=== PATIENT | female | born 1970 | race Caucasian/White ===

== ENCOUNTER 2016-11-16 10:01 | Emergency (ER) | payer OTHER ==
--- NOTE | ~2016-11-16 | CR63 ---
[facility] A Service of [facility] RADIOLOGY TEXT RESULTS PATIENT: TAL VILLELA LOCATION: SED : 74 UNIT #: [id number] AGE: [address]: Boni Jaurgeui MD SEX: F ORDER DR: [id number] [place] [id number] E MR#: [id number] Acc #: [id number] NAME: TAL VILLELA : 1970 SEX: F STUDY DATE/TIME: 11/16/2016 9:55 UNIT: SED ROOM: STUDY DESCRIPTION: CR Chest 2 View Attending Physician: Boni Jauregui M.D. Ordering Physician: Boni Jauregui M.D. Primary Care Physician: Yonny Caban M.D. MEDICAL IMAGING REPORT This report is preliminary unless electronic signature is present. EXAM Chest 2 views 11/16/2016 COMPARISON 09/11/2016. HISTORY Chest pain since last night. FINDINGS PA and lateral examination of the chest upright shows a good expansion of the parenchyma with a normal distribution of the pulmonary vascularity. There is no indication of congestion, effusion, infiltrate, tumor, or nodular density. The pleural reflections and diaphragmatic contours are normal. The cardiac silhouette and mediastinal anatomy is within normal limits. IMPRESSION Normal chest. Dictated by... Jermain Hanson M.D. THIS IS AN ELECTRONICALLY VERIFIED REPORT Jermain Hanson M.D. at 11/20/2016 7:06 PM TEV/pcl TD: 11/16/2016 16:04 JOB #: [id number] [facility] A Service [facility] RADIOLOGY TEXT RESULTS PATIENT: TAL VILLELA LOCATION: SED : 74 UNIT #: [id number] AGE: [address]: Boni Jauregui MD SEX: F ORDER DR: MEDICAL IMAGING REPORT
[~2016-11-16 10:01] MED LIST: ABILIFY10 MG PO; ABILIFY5 MG PO; ADVAIR 500-501 EACH; ADVAIR 500-501 EACH ENDO; ADVAIR 500-501 EACH IH; ALBUTEROL17 GM INH; BUTALB-ACETAMI1 EACH PO; BUTALB-APAP-CA1 EAC1 PO; CAF PO; CLARINEX5 MG PO; CLARITIN10 M1 PO; COGENTIN1 MG PO; DESYREL300 MG PO; DOVONEX60 GM TP; DOXEPIN HCL100 MG; DOXEPIN HCL100 MG PO; DOXYCYCLINE150 MG PO; DUONEB 2.5-0.5 M3 ML ENDO; DUONEB 2.5-0.5 M3 ML NEB; GUAIFENESIN600 MG PO; HYDROCODON-ACE1 EAC5 PO; IBUPROFEN800 MG PO; IPRATR-ALBUTEROL3 ML NEB; KLONOPIN0.5 MG PO; KLONOPIN1 MG PO; LASIX20 MG PO; LEVAQUIN; LEVAQUIN750 M1 PO; LEXAPRO PO; LEXAPRO5 MG PO; LISINOPRIL20 MG PO; LITHIUM; LITHIUM CARBON450 M1 PO; LORCET 10-6501 EACH PO; LORTAB 10-5001 EACH PO; MONTELUKAST SOD10 MG PO; MS CONTIN15 MG PO; MUCINEX100 MG/5 M; NEXIUM PO; NEXIUM20 MG PO; NIACIN500 M2 PO; NICOTINE TRANSD21 MG EXT; NORCO 10-325 TA1 TAB PO; NORCO1 TAB 10/3 PO; NORVASC10 MG PO; NOT RECONCILED; PHENERGAN25 MG PO; PHENERGAN25 MG/ML PO; PHENOL-SODIUM180 ML MT; PREDNISOLONE5 MG; PREDNISONE; PREDNISONE PO; PREDNISONE10 MG PO; PROAIR HFA8.5 GM IH; PROMETHAZINE-D240 ML PO; PROTONIX PO; REGLAN PO; REGLAN10 MG PO; REMERON45 MG PO; RISPERDAL3 MG PO; RISPERDAL4 M1; RISPERIDONE PO; SINGULAIR PO; SINGULAIR5 MG PO; SOMA PO; SOMA250 MG PO; SPIRIVA18 MCG INH; SYMBICORT INH; THORAZINE50 MG PO; TOPAMAX25 MG PO; TUSSIN15 MG/5 ML PO; TUSSIONEX PENN473 ML PO; VENTOLIN5 MG/ML ENDO; VENTOLIN5 MG/ML IH; VIBRAMYCIN100 M1 PO; VISTARIL50 MG PO; VITAMIN E400 UNI4 PO; VYTORIN 10-801 UDTAB PO; VYTORIN 10/80 T1 TAB PO; ZEGERID 20 MG C1 CAP PO; ZITHROMAX500 MG PO; [UNRECOGNIZED DRUG - OTHER] PO
[2017-04-21] MEDS ORDERED: ALB/IPRATROPIUM/1 E2 INH (10:20)
[2017-04-21] MEDS ORDERED: ALBUTEROL17 GM INH (10:21)
[2017-04-21] MEDS ORDERED: NEXIUM20 MG PO (10:22)
[2017-04-21] MEDS ORDERED: LITHIUM CARBON150 MG PO (12:54)
[2017-04-21] MEDS ORDERED: RISPERDAL2 MG PO (12:54)
[2017-04-21] MEDS ORDERED: NEXIUM PO (12:56)
[2017-04-21] MEDS ORDERED: SYMBICORT80 INH (15:41)
[2017-04-21] MEDS ORDERED: TRAZODONE HCL100 MG PO (18:50)
== END 2016-11-16 10:58 | disposition home or self-care (01) ==
LOC: SED 10:01
DX: S29.011A Strain of muscle and tendon of front wall of thorax, initial encounter (principal); F17.200 Nicotine dependence, unspecified, uncomplicated; Z88.2 Allergy status to sulfonamides; Z88.6 Allergy status to analgesic agent; X50.0XXA Overexertion from strenuous movement or load, initial encounter
CPT/HCPCS: 71020; 99283

== ENCOUNTER 2017-02-02 16:38 | Emergency (ER) | payer OTHER ==
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
[2017-04-21] MEDS ORDERED: ALB/IPRATROPIUM/1 E2 INH (10:20)
[2017-04-21] MEDS ORDERED: ALBUTEROL17 GM INH (10:21)
[2017-04-21] MEDS ORDERED: NEXIUM20 MG PO (10:22)
[2017-04-21] MEDS ORDERED: LITHIUM CARBON150 MG PO (12:54)
[2017-04-21] MEDS ORDERED: RISPERDAL2 MG PO (12:54)
[2017-04-21] MEDS ORDERED: NEXIUM PO (12:56)
[2017-04-21] MEDS ORDERED: SYMBICORT80 INH (15:41)
[2017-04-21] MEDS ORDERED: TRAZODONE HCL100 MG PO (18:50)
== END 2017-02-02 18:26 | disposition home or self-care (01) ==
LOC: SED 16:38
DX: S76.012A Strain of muscle, fascia and tendon of left hip, initial encounter (principal); J44.9 Chronic obstructive pulmonary disease, unspecified; J45.909 Unspecified asthma, uncomplicated; F17.210 Nicotine dependence, cigarettes, uncomplicated; Z90.49 Acquired absence of other specified parts of digestive tract; Z90.710 Acquired absence of both cervix and uterus; Z87.442 Personal history of urinary calculi; Z88.2 Allergy status to sulfonamides; Z88.6 Allergy status to analgesic agent; X50.9XXA Other and unspecified overexertion or strenuous movements or postures, initial encounter
CPT/HCPCS: 73502; 96372; 99283; J1885

== ENCOUNTER → 2017-04-02 | Outpatient (CLI) | payer OTHER ==
[~2017-04-02] MED LIST changes: +ALB/IPRATROPIUM/1 E2 INH; +LITHIUM CARBON150 MG PO; +RISPERDAL2 MG PO; +SYMBICORT80 INH; +TRAZODONE HCL100 MG PO
--- NOTE | ~2017-04-02 | CR7 ---
[facility] A Service of [facility] RADIOLOGY TEXT RESULTS PATIENT: TAL VIRAMONTES LOCATION: SRA : 74 UNIT #: [id number] AGE: [address]: Xiang Simeon MD SEX: F ORDER DR: [id number] [address] [address] [id number] O MR#: [id number] Acc #: [id number] NAME: TAL VIRAMONTES : 1970 SEX: F STUDY DATE/TIME: 04/02/2017 13:13 UNIT: [facility] ROOM: STUDY DESCRIPTION: CR Abdomen Single AP View Attending Physician: Xiang Simeon M.D. Referring Physician: Xiang Simeon M.D. Ordering Physician: Xiang Simeon M.D. Primary Care Physician: Xiang Simeon M.D. MEDICAL IMAGING REPORT This report is preliminary unless electronic signature is present. EXAM Frontal abdomen, 04/02/2017 INDICATION 47-year-old female with a history of kidney stones. Symptoms bilaterally for a month. History of hysterectomy, appendectomy and cholecystectomy. TECHNIQUE Frontal abdomen COMPARISON Scanogram of CT, 02/25/2016 FINDINGS Postop changes of cholecystectomy are present. Both renal shadows are obscured by air and fecal material. There are no suspicious calcifications along the expected course of either ureter or associated with either kidney. Bowel gas pattern unremarkable. IMPRESSION Negative frontal abdomen. Dictated by... Boni Espana M.D. THIS IS AN ELECTRONICALLY VERIFIED REPORT Boni Espana M.D. at 04/02/2017 4:02 PM Ana Cristina TD: 04/02/2017 15:27 JOB #: [id number] [facility] A Service of [facility] RADIOLOGY TEXT RESULTS PATIENT: TAL VIRAMONTES LOCATION: [facility] : 72 UNIT #: [id number] AGE: [address]: Xiang Simeon MD SEX: F ORDER DR: MEDICAL IMAGING REPORT Page 1 of 1
== END | disposition home or self-care (01) ==
LOC: SRAD 13:05
DX: N20.0 Calculus of kidney (principal)
CPT/HCPCS: 74000

== ENCOUNTER → 2017-04-07 | Outpatient (CLI) | payer OTHER ==
--- NOTE | ~2017-04-07 | CT4 ---
[facility] A Service [facility] RADIOLOGY TEXT RESULTS PATIENT: TAL VIRAMONTES LOCATION: [facility] : 72 UNIT #: [id number] AGE: [address]: Jovi Kaur MD SEX: F ORDER DR: [id number] [place] [id number] O MR#: [id number] Acc #: [id number] NAME: TAL VIRAMONTES : 1970 SEX: F STUDY DATE/TIME: 04/07/2017 8:35 UNIT: [facility] ROOM: STUDY DESCRIPTION: CT Abd and Pelv Wo Cont Attending Physician: Jovi Kaur M.D. Referring Physician: Jovi Kaur M.D. Ordering Physician: Jovi Kaur M.D. Primary Care Physician: Xiang Simeon M.D. MEDICAL IMAGING REPORT This report is preliminary unless electronic signature is present. EXAM CT of the abdomen and pelvis without contrast INDICATIONS Hematuria and kidney stones for a few weeks. TECHNIQUE CT of the abdomen and pelvis was performed without contrast. Coronal and sagittal reformatted images were obtained. This CT exam was performed with one or more of the following radiation dose reduction techniques: automatic exposure control, adjustment of mA and/or kV according to patient size, and iterative reconstruction. COMPARISON STUDIES Comparison is made with 02/25/2016. FINDINGS There are emphysematous changes of the lung bases. The liver is unremarkable. Cholecystectomy. The spleen is unremarkable. The kidneys, adrenal glands and pancreas are unremarkable. PELVIS: The urinary bladder is unremarkable. There has been a hysterectomy. There is no free fluid. Appendectomy. The bone windows are unremarkable. IMPRESSION No evidence for renal stone. Dictated by... Jose De Jesus Perla M.D. [facility] A Service [facility] RADIOLOGY TEXT RESULTS PATIENT: TAL VIRAMONTES LOCATION: [facility] : 74 UNIT #: [id number] AGE: [address]: Jovi Kaur MD SEX: F ORDER DR: THIS IS AN ELECTRONICALLY VERIFIED REPORT Jose De Jesus Perla M.D. at 04/08/2017 4:59 PM ARS/pcl TD: 04/07/2017 22:19 JOB #: [id number] MEDICAL IMAGING REPORT Page 1 of 1
[2017-04-07 08:45] LABS: POC - GFR >60.0 mL/min (>60)
== END | disposition home or self-care (01) ==
LOC: SCT 08:29
PROVIDERS: Urology
DX: R31.0 Gross hematuria (principal)
CPT/HCPCS: 74176; 82565

== ENCOUNTER → 2017-04-21 | Day surgery (SDC) | payer OTHER ==
--- NOTE | ~2017-04-21 | OR ---
Unit #: [id number] #: [id number] Patient: TAL VIRAMONTES [id number] [address] [place], [place] [address] [id number] O MR#: [id number] NAME: TAL VIRAMONTES. ROOM: Date of Procedure: 04/21/2017 Admission Date: 04/21/2017 Surgeon: Jovi Kaur M.D. : 1970 Attending Physician: Jovi Kaur M.D. Primary Care Physician: Xiang Simeon M.D. OPERATIVE REPORT PREOPERATIVE DIAGNOSIS Gross hematuria. POSTOPERATIVE DIAGNOSIS Gross hematuria. PROCEDURE PERFORMED Cystoscopy with bilateral retrograde ureteral pyelograms with interpretation. ANESTHESIA General. INDICATIONS FOR PROCEDURE This 47-year-old woman has continued to experience intermittent gross hematuria. There is a history of fever several weeks ago. She has a remote history of treatment for stone. CT scan was performed without contrast due to poor venous access, but was normal with no stones or hydronephrosis. She presents for the above procedure. DESCRIPTION OF PROCEDURE The patient was given preoperative antibiotics and satisfactory general anesthesia. She was positioned in dorsal lithotomy and the genitalia were prepped and draped. The 21-Vietnamese rigid cystoscope was introduced with 30-degree lens and video noting a normal urethra and bladder with normal symmetric orifices. After complete viewing with the 30-degree lens, the 70 degree lens was used to confirm absence of any abnormalities of the mucosa or abnormal contour. During this process, the patient experienced severe bladder spasm that seem to persist. I switched back to the 30-degree lens and performed a 5 mL retrograde on each side with an 8-Vietnamese cone-tip catheter with interpretation as follows. Left side: Injection demonstrated delicate left ureter and left renal collecting system with no filling defects. A delicate calices and prompt emptying was observed. Delayed images demonstrated limited renal pelvic capacity and confirmed initial impressions. Right side: 5 mL retrograde similar to the other side demonstrated a delicate straight ureter, delicate calices, and also prompt emptying. There was a vascular impression most likely at the renal pelvis, otherwise Unit #: [id number] #: [id number] Patient: TAL VIRAMONTES also normal anatomy with no filling defects and complete emptying confirmed on delayed images. There was no indication for ureteroscopy. The bladder was drained. The cystoscope removed and a Uro-jet applied to complete the procedure. A one month followup with urinalysis will be recommended to the patient at this point. Dictated by... Paulo Beaulieu/caroline TD: 04/22/2017 02:58 JOB #: [id number] CC: Yonny Caban M.D. OPERATIVE REPORT Page 1 of 1 X Jovi Kaur MD X PROCEDURE OPERATIVE NOTE
== END | disposition home or self-care (01) ==
LOC: CSUR 12:00
DX: R31.0 Gross hematuria (principal); J45.909 Unspecified asthma, uncomplicated; J43.9 Emphysema, unspecified; K21.9 Gastro-esophageal reflux disease without esophagitis; F17.210 Nicotine dependence, cigarettes, uncomplicated; Z87.442 Personal history of urinary calculi; Z87.440 Personal history of urinary (tract) infections; Z88.2 Allergy status to sulfonamides; Z88.8 Allergy status to other drugs, medicaments and biological substances; Z79.51 Long term (current) use of inhaled steroids; Z79.899 Other long term (current) drug therapy; Z90.49 Acquired absence of other specified parts of digestive tract; Z90.710 Acquired absence of both cervix and uterus; Z98.890 Other specified postprocedural states
CPT/HCPCS: J0690; J2250; J2270; J2405; J3010